=== PATIENT | female | born 1985 | race Caucasian/White ===

== ENCOUNTER 2018-05-17 15:30 | Emergency (ER) | payer MEDICAID ==
[~2018-05-17 15:30] MED LIST: CLEOCIN HC150 MG/CAP PO; CRINONE1.125 GM VG; FLONASE ALLERG9.9 ML; MOMETASONE0.05 MG/Ac; NORCO 325 MG-51 TAB PO
[2018-05-17] MEDS ORDERED: ADDERALL 20 MG20 MG PO (15:39)
[2018-05-17 16:23] LABS: EOS # 0.4 (0.04-0.40); EOS % 4.4 % (1.0-5.0); HEMATOCRIT 44.3 % (37.0-47.0); HEMOGLOBIN 14.8 g/dL (12.5-16.0); LYMPH# 1.8 (1.50-4.00); MEAN CELL VOLUME 83 fl (78-100); MEAN CORPUSCULAR HEMOGLOBIN 28 pg (27-31); MEAN CORPUSCULAR HGB CONC 33 g/dL (33-37); MONO # 0.9 (0.20-0.80); NEU # 6.6 (1.40-6.50); PLATELET COUNT 331 K/mm3 (130-400); RED BLOOD COUNT 5.31 M/mm3 (4.10-5.30); RED CELL DISTRIBUTION WIDTH 13.8 % (11.5-14.5); WHITE BLOOD COUNT 9.7 K/mm3 (4.8-10.8)
[2018-05-17 16:30] LABS: LIPASE 185 U/L (23-300)
[2018-05-17 16:33] LABS: BUN/CREATININE RATIO 14.3 (6.0-26.0); CALCIUM 9.4 mg/dL (8.4-10.2); POTASSIUM 3.7 mmol/L (3.6-5.0); TOTAL BILIRUBIN 0.6 mg/dL (0.2-1.3); TOTAL PROTEIN 7.1 g/dL (6.3-8.2)
[2018-05-17] MEDS ORDERED: ZOFRAN ODT4 MG PO (18:34)
[2018-05-17] MEDS ORDERED: PERCOCET 325 MG1 TA2 PO (18:34)
[2018-05-17 18:59] VITALS: BP 103/58
== END 2018-05-17 19:02 | disposition home or self-care (01) ==
LOC: ED 15:30
PROVIDERS: Family Medicine
DX: R10.11 Right upper quadrant pain (principal); Z79.899 Other long term (current) drug therapy
CPT/HCPCS: J0595; J1885

== ENCOUNTER → 2018-05-18 | Outpatient (CLI) | payer MEDICAID ==
[2018-05-17 18:59] VITALS: BP 103/58
[~2018-05-18] MED LIST changes: +ADDERALL 20 MG20 MG PO; +PERCOCET 325 MG1 TA2 PO; +ZOFRAN ODT4 MG PO
== END ==
LOC: RAD 09:12
DX: R10.11 Right upper quadrant pain (principal)

== ENCOUNTER → 2018-06-15 | Day surgery (SDC) | payer MEDICAID ==
[2018-05-17 18:59] VITALS: BP 103/58
== END ==
LOC: MSO 07:00
DX: K81.1 Chronic cholecystitis (principal); Z79.899 Other long term (current) drug therapy
CPT/HCPCS: 00790; J0690; J1100; J1885; J2405; J2704; J2710; J3010; J3490; J7120

== ENCOUNTER → 2019-09-23 | Outpatient (CLI) | payer BC | LOC: RAD 14:33 | DX: M51.86 Other intervertebral disc disorders, lumbar region (principal); M54.16 Radiculopathy, lumbar region; M43.16 Spondylolisthesis, lumbar region ==

== ENCOUNTER → 2020-07-19 | Outpatient (CLI) | payer BC ==
[2020-07-19 08:33] LABS: EOS # 0.2 (0.04-0.40); HEMATOCRIT 44.8 % (37.0-47.0); HEMOGLOBIN 15.1 g/dL (12.5-16.0); LYMPH# 1.7 (1.50-4.00); MEAN CELL VOLUME 85 fl (78-100); MEAN CORPUSCULAR HEMOGLOBIN 29 pg (27-31); MEAN CORPUSCULAR HGB CONC 34 g/dL (33-37); MEAN PLATELET VOLUME 10.2 fl (7.4-10.4); MONO # 0.8 (0.20-0.80); PLATELET COUNT 397 K/mm3 (130-400); WHITE BLOOD COUNT 11.9 K/mm3 (4.8-10.8)
[2020-07-19 08:41] LABS: ALBUMIN 4.5 g/dL (3.5-5.0); POTASSIUM 3.3 mmol/L (3.5-5.1)
[2020-07-19 08:42] LABS: CALCIUM 9.4 mg/dL (8.3-10.5)
[2020-07-19 08:43] LABS: TOTAL PROTEIN 7.1 g/dL (6.4-8.3)
[2020-07-19 08:45] LABS: TOTAL BILIRUBIN 0.8 mg/dL (0.2-1.2)
[2020-07-19 09:04] LABS: NEU # 9.1 (1.40-6.50)
[2020-07-19 09:39] LABS: ERYTHROCYTE SEDIMENTATION RATE 2 mm/hr (0-20)
== END ==
LOC: RAD 08:20
PROVIDERS: Physician Assistant
DX: M79.629 Pain in unspecified upper arm (principal); R59.0 Localized enlarged lymph nodes; G56.90 Unspecified mononeuropathy of unspecified upper limb; M25.549 Pain in joints of unspecified hand; M54.9 Dorsalgia, unspecified; J30.89 Other allergic rhinitis; M54.2 Cervicalgia

== ENCOUNTER 2022-01-20 01:34 | Emergency (ER) | payer BC ==
[2022-01-20 03:51] LABS: BASO # 0.08 K/mm3 (0.02-0.10); EOS # 0.72 K/mm3 (0.04-0.40); EOS % 3.5 % (1.0-5.0); HEMATOCRIT 39.9 % (37.0-47.0); HEMOGLOBIN 13.1 g/dL (12.5-16.0); LYMPH# 4.88 K/mm3 (1.50-4.00); MEAN CELL VOLUME 84 fl (78-100); MEAN CORPUSCULAR HEMOGLOBIN 28 pg (27-31); MEAN CORPUSCULAR HGB CONC 33 g/dL (33-37); MEAN PLATELET VOLUME 10.1 fl (7.4-10.4); MONO # 0.92 K/mm3 (0.20-0.80); PLATELET COUNT 438 K/mm3 (130-400); RED BLOOD COUNT 4.74 M/mm3 (4.10-5.30); RED CELL DISTRIBUTION WIDTH 12.9 % (11.5-14.5)
[2022-01-20 04:00] LABS: CALCIUM 8.7 mg/dL (8.3-10.5)
[2022-01-20 04:07] LABS: WHITE BLOOD COUNT 20.9 K/mm3 (4.8-10.8)
[2022-01-20 06:15] LABS: URINE APPEARANCE CLEAR; URINE BILIRUBIN NEGATIVE (NEGATIVE); URINE BLOOD TRACE (NEGATIVE); URINE COLOR YELLOW; URINE GLUCOSE NEGATIVE (NEGATIVE); URINE KETONE NEGATIVE (NEGATIVE); URINE LEUKOCYTE ESTERASE NEGATIVE (NEGATIVE); URINE MUCUS PRESENT (NOT PRESENT); URINE NITRATE NEGATIVE (NEGATIVE); URINE PROTEIN(semi-quant) TRACE (NEGATIVE); URINE UROBILINOGEN NORMAL (NORMAL); URINE WBC 0-1 /hpf (0-3)
[2022-01-20 08:30] VITALS: BP 125/78
== END 2022-01-20 08:31 | disposition home or self-care (01) ==
LOC: ED 01:34
PROVIDERS: Family Medicine
DX: R05.9 Cough, unspecified (principal)
CPT/HCPCS: J1885; J2250; J3010